=== PATIENT | female | born 1935 | race Caucasian/White ===

== ENCOUNTER 2023-02-04 04:24 | Day surgery (SDC) | payer OTHER, MEDICARE ==
[2023-02-01 17:53] VITALS: BMI 21.2
[~2023-02-04 04:24] MED LIST: LIDOCAINE HCL 1%, 10 MG/ML (20ML VIAL) INF ONE
[2023-02-04 11:24] VITALS: RESP 18
[2023-02-04] MEDS ORDERED: BUPIVACAINE HCL/PF 0.25% (2.5MG/ML) 10 ML VIAL ONE (13:12)
[2023-02-04] MEDS ORDERED: PROPOFOL 40 ML ONE (13:14)
[2023-02-04] MEDS ORDERED: BUPIVACAINE HCL/PF 0.25% (2.5MG/ML) 10 ML VIAL IJ ONE (13:18)
[2023-02-04 15:26] VITALS: BP 156/68; PULSE 61; TEMP 97.7
== END 2023-02-04 15:00 | disposition home or self-care (01) ==
LOC: JASU-SURG 04:24
PROVIDERS: ATTEND Podiatrist Foot Surgery
PROC: 01BG0ZZ Excision of Tibial Nerve, Open Approach (ICD-10-PCS; principal; 2023-02-04 13:00)
DX: G57.81 Other specified mononeuropathies of right lower limb (principal)